=== PATIENT | female | born 1980 | race African-American/Black ===

== ENCOUNTER 2016-05-17 12:28 | Emergency (ER) | payer OTHER ==
[~2016-05-17] VITALS: Ht 167.6 cm; Wt 80.1 kg
[~2016-05-17 12:28] MED LIST: ALPRAZOLAM0.25 MG PO; CELEXA20 MG PO; CIPRO500 MG PO; DILAUDID2 MG PO; FIORICET 50-301 EACH PO; FIORICET WI1 CAPSULE PO; FIORICET,ESG1 TABLET PO; FLEXERIL10 MG PO; IMITREX50 MG; IMITREX50 MG PO; MEDROL DOSEPAK4 MG PO; MIRALAX17 GM PO; MOTRIN800 MG PO; ORTHO TRICYCLEN LO PO; PERCOCET 5/31 TABLET PO; PREMARIN0.625 MG PO; Percocet 5/325,Endoc PO; TOPAMAX50 MG PO; VICODIN,LORT1 TABLET PO; XANAX0.25 MG PO; ZITHROMAX Z-PA250 MG PO
[2016-05-17] MEDS ORDERED: NITROFURANTOIN25 MG PO (12:53)
[2016-05-17] MEDS ORDERED: PHENAZOPYRIDIN200 MG PO (12:54)
[2016-05-17 13:57] LABS: HEMATOCRIT 39.4 % (36.0-46.0); MCH 28.8 PG (29.0-34.0); MCHC 33.5 G/DL (30.0-36.0); MCV 85.8 FL (83-99); MEAN PLAT.VOLUME 10.8 uM^3 (9.5-12.4); PLATELET COUNT 215 K/uL (156-360); RBC DIS.WIDTH-CV 12.7 % (11.8-14.6); RED BLOOD COUNT 4.59 M/uL (3.80-5.20); WHITE BLOOD COUNT 5.5 K/uL (4.1-10.2)
[2016-05-17 14:06] LABS: CHLORIDE 108 mEq/L (99-109)
[2016-05-17 14:07] LABS: SODIUM 138 mEq/L (136-147)
[2016-05-17 14:08] LABS: GLUCOSE 98 mg/dL (70-99)
[2016-05-17 14:10] LABS: ANION GAP 9 MEQ/L (2-14)
[2016-05-17 14:12] LABS: GFR ESTIMATE (CALCULATED) > 59 mL/min/
[2016-05-17 14:13] LABS: UREA NITROGEN (BUN) 12 mg/dL (9-23)
[2016-05-17 14:32] LABS: ADD MIUA? YES; BILIRUBIN NEGATIVE; BLOOD NEGATIVE; COLOR DK YELLOW ((YELLOW)); GLUCOSE (STRIP) NEGATIVE; KETONES NEGATIVE; LEUKOCYTES SMALL; PH, URINE 7.5 (5-8); PROTEIN (STRIP) TRACE; SPECIFIC GRAVITY 1.024 (1.000-1.030)
[2016-05-17 14:42] LABS: BACTERIA 1+; CASTS NONE SEEN /LPF; CRYSTALS NONE SEEN; EPITHELIAL CELLS 1+; MUCUS NONE SEEN; PATHOLOGICAL CAST NONE SEEN; RED BLOOD CELLS 0-5 /HPF (0-5); SMALL ROUND CELL NONE SEEN; UCUL ADDED? NO; WHITE BLOOD CELLS 0-5 /HPF (0-5); YEAST-LIKE CELL NONE SEEN
[2016-05-17 14:43] LABS: NITRITE NEGATIVE
[2016-05-17 15:10] VITALS: BP 124/43
== END 2016-05-17 15:12 | disposition home or self-care (01) ==
LOC: EME 12:28
PROVIDERS: Emergency Medicine
DX: R51 Headache (principal); R07.9 Chest pain, unspecified; M79.602 Pain in left arm; R41.3 Other amnesia; Z90.710 Acquired absence of both cervix and uterus; Z79.890 Hormone replacement therapy
CPT/HCPCS: 80048; 81003; 85027; 93005; 99281; 99284

== ENCOUNTER 2016-06-05 04:15 | Emergency (ER) | payer OTHER ==
[~2016-06-05] VITALS: Ht 167.6 cm; Wt 81.1 kg
[~2016-06-05 04:15] MED LIST changes: +NITROFURANTOIN25 MG PO; +PHENAZOPYRIDIN200 MG PO
[2016-06-05] MEDS ORDERED: AUGMENTIN875 MG PO (05:44)
[2016-06-05 06:15] VITALS: BP 144/84
== END 2016-06-05 06:25 | disposition home or self-care (01) ==
LOC: EME 04:15
PROC: 3E0234Z Introduction of Serum, Toxoid and Vaccine into Muscle, Percutaneous Approach (ICD-10-PCS; principal; 2016-06-05)
DX: S00.83XA Contusion of other part of head, initial encounter (principal); S61.251A Open bite of left index finger without damage to nail, initial encounter; S91.152A Open bite of left great toe without damage to nail, initial encounter; Y04.1XXA Assault by human bite, initial encounter; Z23 Encounter for immunization
CPT/HCPCS: 73130; 99281; 99284

== ENCOUNTER 2016-06-07 13:10 | Emergency (ER) | payer OTHER ==
[~2016-06-07] VITALS: Ht 167.6 cm; Wt 80.1 kg
[~2016-06-07 13:10] MED LIST changes: +AUGMENTIN875 MG PO
[2016-06-07] MEDS ORDERED: MOTRIN800 MG PO (14:51)
[2016-06-07 15:09] VITALS: BP 118/79
== END 2016-06-07 15:11 | disposition home or self-care (01) ==
LOC: EME 13:10
DX: S61.251D Open bite of left index finger without damage to nail, subsequent encounter (principal); Y04.1XXD Assault by human bite, subsequent encounter; Y07.410 Brother, perpetrator of maltreatment and neglect
CPT/HCPCS: 99281; 99284

== ENCOUNTER 2016-08-04 13:31 | Emergency (ER) | payer OTHER ==
[~2016-08-04] VITALS: Ht 167.6 cm; Wt 77.6 kg
[2016-08-04] MEDS ORDERED: ULTRAM50 MG PO (17:51)
[2016-08-04] MEDS ORDERED: NAPROSYN500 MG PO (17:51)
[2016-08-04 18:05] VITALS: BP 118/76
== END 2016-08-04 18:06 | disposition home or self-care (01) ==
LOC: EME 13:31
DX: S05.11XA Contusion of eyeball and orbital tissues, right eye, initial encounter (principal); W22.8XXA Striking against or struck by other objects, initial encounter
CPT/HCPCS: 70486; 99281; 99284

== ENCOUNTER 2017-01-28 14:50 | Emergency (ER) | payer OTHER ==
[~2017-01-28] VITALS: Ht 167.6 cm; Wt 84.1 kg
[~2017-01-28 14:50] MED LIST changes: +NAPROSYN500 MG PO; +ULTRAM50 MG PO
[2017-01-28 15:21] LABS: HEMATOCRIT 44.7 % (36.0-46.0); MCH 28.4 PG (29.0-34.0); MCHC 32.2 G/DL (30.0-36.0); MCV 88.2 FL (83-99); MEAN PLAT.VOLUME 10.5 uM^3 (9.5-12.4); PLATELET COUNT 288 K/uL (156-360); RBC DIS.WIDTH-SD 38.6 % (39-53); RED BLOOD COUNT 5.07 M/uL (3.80-5.20); WHITE BLOOD COUNT 9.8 K/uL (4.1-10.2)
[2017-01-28 15:32] LABS: CHLORIDE 105 mEq/L (99-109); POTASSIUM 4.3 mEq/L (3.7-5.4); SODIUM 141 mEq/L (136-147)
[2017-01-28 15:33] LABS: GLUCOSE 81 mg/dL (70-99)
[2017-01-28 15:35] LABS: ANION GAP 12 MEQ/L (2-14)
[2017-01-28 15:36] LABS: ADD MIUA? YES; BILIRUBIN NEGATIVE; BLOOD MODERATE; COLOR COLORLESS ((YELLOW)); GLUCOSE (STRIP) NEGATIVE; KETONES NEGATIVE; LEUKOCYTES SMALL; NITRITE NEGATIVE; PROTEIN (STRIP) NEGATIVE; SPECIFIC GRAVITY 1.002 (1.000-1.030); UROBILINOGEN 0.2 MG/DL (0.2-1.0)
[2017-01-28 15:37] LABS: GFR ESTIMATE (CALCULATED) > 59 mL/min/
[2017-01-28 15:38] LABS: UREA NITROGEN (BUN) 11 mg/dL (9-23)
[2017-01-28 15:49] LABS: BACTERIA RARE /HPF; EPITHELIAL CELLS RARE /HPF; MUCUS NONE SEEN /LPF; RED BLOOD CELLS 0-5 /HPF (0-5); UCUL ADDED? YES
[2017-01-28] MEDS ORDERED: BACTRIM,SEPT1 TABLET PO (17:40)
[2017-01-28 18:25] LABS: QUANTITATIVE HCG < 4.0 MIU/ML
[2017-01-28 18:35] VITALS: BP 135/82
== END 2017-01-28 18:35 | disposition home or self-care (01) ==
LOC: EME 14:50
DX: N39.0 Urinary tract infection, site not specified (principal); Z87.442 Personal history of urinary calculi; Z90.710 Acquired absence of both cervix and uterus
CPT/HCPCS: 74176; 80048; 81003; 84702; 84702 90; 85027; 87086; 99281; 99284; J1200; J1885; J2765; J7030

== ENCOUNTER 2017-02-03 16:24 | Emergency (ER) | payer OTHER ==
[~2017-02-03] VITALS: Ht 167.6 cm; Wt 84.4 kg
[~2017-02-03 16:24] MED LIST changes: +BACTRIM,SEPT1 TABLET PO
[2017-02-03 17:14] LABS: HEMATOCRIT 39.6 % (36.0-46.0); MCH 29.2 PG (29.0-34.0); MCHC 33.1 G/DL (30.0-36.0); MCV 88.2 FL (83-99); MEAN PLAT.VOLUME 10.7 uM^3 (9.5-12.4); PLATELET COUNT 254 K/uL (156-360); RBC DIS.WIDTH-CV 12.2 % (11.8-14.6); RBC DIS.WIDTH-SD 39.3 % (39-53); RED BLOOD COUNT 4.49 M/uL (3.80-5.20); WHITE BLOOD COUNT 6.7 K/uL (4.1-10.2)
[2017-02-03 17:23] LABS: CHLORIDE 108 mEq/L (99-109); POTASSIUM 3.9 mEq/L (3.7-5.4); SODIUM 141 mEq/L (136-147)
[2017-02-03 17:25] LABS: GLUCOSE 86 mg/dL (70-99)
[2017-02-03 17:27] LABS: ANION GAP 10 MEQ/L (2-14)
[2017-02-03 17:29] LABS: GFR ESTIMATE (CALCULATED) > 59 mL/min/
[2017-02-03 17:30] LABS: UREA NITROGEN (BUN) 17 mg/dL (9-23)
[2017-02-03 17:35] LABS: TROP-I INTERPRETATION NEGATIVE; TROPONIN-I < 0.01 ng/mL (0.0-0.30)
[2017-02-03 18:12] LABS: D-DIMER ELISA < 150.00 ng/mLDDU (<230)
[2017-02-03 20:40] LABS: TROP-I INTERPRETATION NEGATIVE; TROPONIN-I < 0.01 ng/mL (0.0-0.30)
[2017-02-03 21:08] VITALS: BP 130/58
== END 2017-02-03 21:11 | disposition home or self-care (01) ==
LOC: EME 16:24
PROVIDERS: Physician Assistant
DX: R07.9 Chest pain, unspecified (principal); M25.512 Pain in left shoulder; R53.1 Weakness; I45.10 Unspecified right bundle-branch block; Z82.49 Family history of ischemic heart disease and other diseases of the circulatory system; Z90.710 Acquired absence of both cervix and uterus; Z79.890 Hormone replacement therapy
CPT/HCPCS: 71020; 80048; 84484; 85027; 85379; 93005; 99281; 99285

== ENCOUNTER 2017-11-03 20:33 | Emergency (ER) | payer OTHER ==
[~2017-11-03] VITALS: Ht 167.6 cm; Wt 90.7 kg
[2017-11-03 21:02] LABS: HEMATOCRIT 40.9 % (36.0-46.0); HEMOGLOBIN 13.4 G/DL (11.9-15.5); MCH 29.1 PG (29.0-34.0); MCHC 32.8 G/DL (30.0-36.0); MCV 88.7 FL (83-99); PLATELET COUNT 276 K/uL (156-360); RBC DIS.WIDTH-CV 12.7 % (11.8-14.6); RBC DIS.WIDTH-SD 41.4 % (39-53); RED BLOOD COUNT 4.61 M/uL (3.80-5.20); WHITE BLOOD COUNT 7.5 K/uL (4.1-10.2)
[2017-11-03 21:18] LABS: CHLORIDE 105 mEq/L (99-109); POTASSIUM 3.9 mEq/L (3.7-5.4); SODIUM 141 mEq/L (136-147)
[2017-11-03 21:20] LABS: GLUCOSE 98 mg/dL (70-99)
[2017-11-03 21:24] LABS: CREATININE 0.8 mg/dL (0.6-1.3); GFR ESTIMATE (CALCULATED) > 59 mL/min/; UREA NITROGEN (BUN) 14 mg/dL (9-23)
[2017-11-03 21:32] LABS: TROP-I INTERPRETATION NEGATIVE; TROPONIN-I 0.01 ng/mL (0.0-0.30)
[2017-11-03] MEDS ORDERED: PROTONIX40 MG PO (22:17)
[2017-11-03] MEDS ORDERED: NAPROSYN500 MG PO (22:17)
[2017-11-03 22:46] VITALS: BP 128/84
== END 2017-11-03 22:53 | disposition home or self-care (01) ==
LOC: EME 20:33
DX: R07.89 Other chest pain (principal); R53.1 Weakness; Z90.710 Acquired absence of both cervix and uterus; Z79.890 Hormone replacement therapy
CPT/HCPCS: 71046; 80048; 84484; 85027; 93005